=== PATIENT | male | born 1950 | race Caucasian/White ===

== ENCOUNTER 2017-02-04 08:27 | Day surgery (SDC) | payer MEDICARE, OTHER ==
[~2017-02-04] VITALS: Ht 182.9 cm; Wt 83.5 kg
[~2017-02-04 08:27] MED LIST: ASPI1TAB PO; LISI10TA2 PO; METF750T PO; MULT1TAB10 PO; SIMV10TA2 PO
[2017-02-04] MEDS ORDERED: NS 1,000 ML IV SCH (09:45)
[2017-02-04] MEDS ORDERED: PROPOFOL 200 MG/20 ML VIAL As Ordered ONE ×2 (10:11→10:33)
--- NOTE | 2017-02-04 10:44 | ROOR ---
Patient Name: Justin Page Procedure Date: 02/04/2017 10:10 AM Date of : 1950 Age: 66 Room: [facility] Gender: Male Note Status: Finalized Procedure: Total Colonoscopy to Cecum + Cold Snare Polypectomy + Hemoclips Indications: Screening for colorectal malignant neoplasm Providers: Harjit Bertrand MD Referring MD: ERICA WILDE JR, MD Requesting Provider: Medicines: Monitored Anesthesia Care Complications: No immediate complications. Procedure: Pre-Anesthesia Assessment: - The heart rate, respiratory rate, oxygen saturations, blood pressure, adequacy of pulmonary ventilation, and response to care were monitored throughout the procedure. The Colonoscope was introduced through the anus and advanced to the cecum, identified by appendiceal orifice and ileocecal valve. The colonoscopy was performed without difficulty. The patient tolerated the procedure well. The quality of the bowel preparation was excellent. Findings: The perianal and digital rectal examinations were normal. Non-bleeding internal hemorrhoids were found during retroflexion. The hemorrhoids were small and Grade I (internal hemorrhoids that do not prolapse). A medium polyp was found at 10 cm proximal to the anus. The polyp was sessile. The polyp was removed with a cold snare. Resection and retrieval were complete. To prevent bleeding after the polypectomy, two hemostatic clips were successfully placed (MR conditional). There was no bleeding at the end of the procedure. A small polyp was found at 25 cm proximal to the anus. The polyp was sessile. The polyp was removed with a cold snare. Resection and retrieval were complete. The exam was otherwise without abnormality on direct and retroflexion views. Impression: - Non-bleeding internal hemorrhoids. - One medium polyp at 10 cm proximal to the anus, removed with a cold snare. Resected and retrieved. Clips (MR conditional) were placed. - One small polyp at 25 cm proximal to the anus, removed with a cold snare. Resected and retrieved. - The examination was otherwise normal on direct and retroflexion views. - The exam was otherwise normal to the cecum. Recommendation: - Patient has a contact number available for emergencies. The signs and symptoms of potential delayed complications were discussed with the patient. Return to normal activities tomorrow. Written discharge instructions were provided to the patient. - High fiber diet. - Discharge patient to home. - Continue present medications. - Await pathology results. - Telephone GI clinic for pathology results in 1 week. - Check Portal Online for Path Results.([email or web address]) - Return to referring physician. - The findings and recommendations were discussed with the patient's family. Harjit Bertrand MD Harjit Bertrand MD 02/04/2017 10:44:30 AM This report has been signed electronically. Number of Addenda: 0 Note Initiated On: 02/04/2017 10:10 AM Estimated Blood Loss: Estimated blood loss: none.
[2017-02-04 11:08] VITALS: BP 143/85
== END 2017-02-04 11:10 | disposition home or self-care (01) ==
LOC: M OPP 08:27 → EDSTATUS 10:00 → M OPP 11:10
PROVIDERS: ATTEND Internal Medicine Gastroenterology
DX: Z12.11 Encounter for screening for malignant neoplasm of colon (principal); K62.1 Rectal polyp; D12.5 Benign neoplasm of sigmoid colon; K64.0 First degree hemorrhoids; I10 Essential (primary) hypertension; E78.5 Hyperlipidemia, unspecified; E11.9 Type 2 diabetes mellitus without complications; M19.90 Unspecified osteoarthritis, unspecified site; Z79.82 Long term (current) use of aspirin; Z79.899 Other long term (current) drug therapy

== ENCOUNTER → 2021-05-20 | Outpatient (REF) | payer MEDICARE, OTHER ==
[~2021-05-20] MED LIST changes: -ASPI1TAB PO; +ASPI81TA26 PO; -LISI10TA2 PO; +LISI10TA24 PO; -METF750T PO; +METF750T36 PO; -SIMV10TA2 PO; +SIMV10TA21 PO
== END ==
LOC: M LAB REF 16:40
PROVIDERS: ATTEND Internal Medicine
DX: D72.9 Disorder of white blood cells, unspecified (principal)

== ENCOUNTER → 2022-12-10 | Outpatient (REF) | payer MEDICARE, OTHER | LOC: M SMT 13:13 | PROVIDERS: ATTEND Urology | DX: R97.20 Elevated prostate specific antigen [PSA] (principal) ==

== ENCOUNTER → 2023-02-17 | Outpatient (CLI) | payer MEDICARE, OTHER ==
[~2023-02-17] VITALS: Ht 172.7 cm; Wt 91.5 kg
[~2023-02-17] MED LIST changes: +CIPR750T2 PO; +LIDOCAINE 2% MDV 20ML VIAL XX ONE; +LORA1TAB23 PO
[2023-02-17 13:28] VITALS: BP 112/81; TEMP 98.2; O2SAT 97
[2023-02-17 14:17] VITALS: BP 124/80; TEMP 98.1; O2SAT 99
== END ==
LOC: M ONCR 13:19
PROVIDERS: ATTEND General Practice
DX: C61 Malignant neoplasm of prostate (principal)
CPT/HCPCS: 55874; 55876; A4648; C1889

== ENCOUNTER → 2023-03-17 | Outpatient (RCR) | payer MEDICARE, OTHER ==
[~2023-03-17] MED LIST changes: +FLOM0.4C39 PO; -LIDOCAINE 2% MDV 20ML VIAL XX ONE
== END ==
LOC: M ONCR 02-28 10:28
PROVIDERS: ATTEND General Practice
DX: Z51.0 Encounter for antineoplastic radiation therapy (principal); C61 Malignant neoplasm of prostate

== ENCOUNTER 2023-03-22 14:35 | Outpatient (RCR) | payer MEDICARE, OTHER | END 2023-04-17 | PROVIDERS: ATTEND General Practice | DX: Z51.0 Encounter for antineoplastic radiation therapy (principal); C61 Malignant neoplasm of prostate ==

== ENCOUNTER → 2023-08-19 | Outpatient (CLI) | payer MEDICARE, OTHER | LOC: M ONCR 14:30 | PROVIDERS: ATTEND General Practice | DX: C61 Malignant neoplasm of prostate (principal); Z71.2 Person consulting for explanation of examination or test findings; Z79.82 Long term (current) use of aspirin; Z79.84 Long term (current) use of oral hypoglycemic drugs; Z79.899 Other long term (current) drug therapy; Z92.3 Personal history of irradiation ==

== ENCOUNTER 2024-01-18 11:33 | Day surgery (SDC) | payer MEDICARE, OTHER ==
[~2024-01-18] VITALS: Ht 177.8 cm; Wt 85.8 kg
[~2024-01-18 11:33] MED LIST changes: +AZEL0.05 OU; +DIPH-448 PO; +FARX1TAB3 PO; +LANTINJ4 SC
[2024-01-18] MEDS: NS 1,000 ML IV ONE (12:13)
[2024-01-18] MEDS ORDERED: LIDOCAINE 2% 100MG/5ML SDV (FOR ANES.) As Ordered ONE (14:00)
[2024-01-18] MEDS ORDERED: propofoL 200 MG/20 ML VIAL As Ordered ONE (14:00)
[2024-01-18 14:37] VITALS: TEMP 97.5
[2024-01-18 14:53] VITALS: BP 143/80; O2SAT 98
== END 2024-01-18 15:00 | disposition home or self-care (01) ==
LOC: M OPP 11:33
PROVIDERS: ATTEND Internal Medicine Gastroenterology
DX: D12.6 Benign neoplasm of colon, unspecified (principal); Z86.0100 Personal history of colon polyps, unspecified; K64.0 First degree hemorrhoids; K57.30 Diverticulosis of large intestine without perforation or abscess without bleeding; I10 Essential (primary) hypertension; E78.00 Pure hypercholesterolemia, unspecified; E11.9 Type 2 diabetes mellitus without complications; M19.90 Unspecified osteoarthritis, unspecified site; Z85.46 Personal history of malignant neoplasm of prostate; Z92.3 Personal history of irradiation; Z79.4 Long term (current) use of insulin; Z79.82 Long term (current) use of aspirin; Z79.84 Long term (current) use of oral hypoglycemic drugs; Z79.899 Other long term (current) drug therapy